=== PATIENT | male | born 1955 | race Caucasian/White ===

== ENCOUNTER → 2017-03-02 | Outpatient (CLI) | payer OTHER | LOC: FIMAGING 11:08 | PROVIDERS: ATTEND Family Medicine | DX: M67.911 Unspecified disorder of synovium and tendon, right shoulder (principal) ==

== ENCOUNTER → 2017-05-02 | Outpatient (CLI) | payer OTHER | LOC: FIMAGING 06:45 | PROVIDERS: ATTEND Orthopaedic Surgery | DX: S46.111A Strain of muscle, fascia and tendon of long head of biceps, right arm, initial encounter (principal); S43.431A Superior glenoid labrum lesion of right shoulder, initial encounter; M75.81 Other shoulder lesions, right shoulder ==

== ENCOUNTER 2017-10-02 21:54 | Emergency (ER) | payer OTHER ==
--- NOTE | 2017-10-02 21:57 | EDPHY ---
H & P Time Seen by Provider: 10/02/17 21:56 HPI/ROS: HPI CHIEF COMPLAINT: Right great toe pain HISTORY OF PRESENT ILLNESS: Very pleasant 62-year-old male, history of gout, additionally history of gout in his great toe. He presents emergency room with right great toe pain that started earlier this evening. He did have 2 beers earlier this evening. He states this feels like his previous gout. Patient denies any trauma to his foot. Denies fever. Pain is located over the right 1st MTP joint. Great toe. He is due to go to [place] on vacation tomorrow. He is requesting medications. I did offer blood work check CBC, uric acid an x-ray of his foot over he has declined all this with like indomethacin, [place] and walking boot. Past Medical History: Suite syndrome Past Surgical History: No recent surgery Social History: Occasional alcohol use, denies illicit drugs or tobacco. Family History: Noncontributory ROS REVIEW OF SYSTEMS: A comprehensive 10 point review of systems is otherwise negative aside from elements mentioned in the history of present illness. Exam Constitutional appears well nontoxic no acute distress, triage nursing summary reviewed, vital signs reviewed, awake/alert. Eyes normal conjunctivae and sclera, EOMI, PERRLA. HENT normal inspection, atraumatic, moist mucus membranes, no epistaxis, neck supple/ no meningismus, no raccoon eyes. Respiratory clear to auscultation bilaterally, normal breath sounds, no respiratory distress, no wheezing. Cardiovascular rate normal, regular rhythm, no murmur, no edema, distal pulses normal. Gastrointestinal soft, non-tender, no rebound, no guarding, normal bowel sounds, no distension, no pulsatile mass. Genitourinary no CVA tenderness. Musculoskeletal right ft: Neurovascular intact good distal pulse, good cap refill. Swelling and redness noted of the 1st MTP joint. Full range of motion. Warm extremity. No streaking. Swelling and redness located only to the right 1st MTP. no midline vertebral tenderness, full range of motion, no calf swelling, no tenderness of extremities, no meningismus, good pulses, neurovascularly intact. Skin pink, warm, & dry, no rash, skin atraumatic. Neurologic awake, alert and oriented x 3, AAOx3, moves all 4 extremities equally, motor intact, sensory intact, CN II-XII intact, normal cerebellar, normal vision, normal speech. Psychiatric normal mood/affect. Heme/Lymph/Immune no lymphadenopathy. Differential Diagnosis: Includes but is not limited to in a particular order gout, pseudogout, septic joint, infection, cellulitis, trauma Medical Decision Making: Patient here in emergency room declined blood work or x-ray. Will empirically treat for gout. Provide a prescription for indomethacin and [place]. Walking boot. I recommend he refrain from eating a diet high in periods. Recommend staying away from meets, as well as alcohol. He is due to fly tomorrow morning to [place] for vacation. Highly recommend he refrain from drinking alcohol. Additionally I went over return precautions with me understands return emergency room if develops worsening pain, swelling, redness or redness tracking up his foot or leg. Additionally recommend if his symptoms get worsen easy cristal Liu seeks medical attention. He understands return emergency room if worsening symptoms questions or concerns. Re-evaluation: Patient does understand that without blood work and x-ray this is most likely gout however there could be another potential diagnosis. He understands if this gets worse he should seek further medical attention. Limited prescription for [place], indomethacin, walking boot. Source: Patient - Medical/Surgical History Hx Asthma: No Hx Chronic Respiratory Disease: No Hx Diabetes: No Hx Cardiac Disease: No Hx Renal Disease: No Hx Cirrhosis: No Hx Alcoholism: No Hx HIV/AIDS: No Hx Splenectomy or Spleen Trauma: No Other PMH: HEALTHY - Social History Smoking Status: Current every day smoker Constitutional: Initial Vital Signs Temperature (C) 36.6 C 10/02/17 22:05 Heart Rate 85 10/02/17 22:05 Respiratory Rate 18 10/02/17 22:05 Blood Pressure 155/80 H 10/02/17 22:05 O2 Sat (%) 96 10/02/17 22:05 O2 Delivery Mode Room Air Allergies/Adverse Reactions: azithromycin [Azithromycin] Allergy (Intermediate, Verified 08/09/10 13:55) JOINT PAIN erythromycin base [Erythromycin Base] Allergy (Mild, Verified 08/19/09 07:40) Itching Penicillins Allergy (Mild, Verified 08/19/09 07:40) rash, itching Home Medications: Medication Instructions Recorded Hydrocodone/APAP 5/325 [[place] 1 - 2 tab PO Q4H PRN #10 tab 10/02/17 5/325] Indomethacin [Indocin 25 mg (*)] 25 mg PO TID #21 cap 10/02/17 Departure - Departure Disposition: Home, Routine, Self-Care Clinical Impression: Gout Qualifiers: Gout site: foot Gout etiology: unspecified cause Chronicity: acute Laterality: right Qualified Code(s): M10.9 - Gout, unspecified Condition: Good Instructions: Gout (ED), Low Purine Diet (ED) Additional Instructions: 1. [place] if you are having serve pain, this can cause you to bee sleepy. 2. Stay away from Alcohol, and high meat content. 3. Follow up with your doctor. 4. walking boot for comfort. 5. Ice 6. REst, Elevation 7. Seek medical attention if her pain gets worse or redness or swelling gets worse. Prescriptions: Hydrocodone/APAP 5/325 [[place] 5/325] 1 - 2 tab PO Q4H PRN #10 tab PRN Reason: Pain, Moderate Indomethacin [Indocin 25 mg (*)] 25 mg PO TID #21 cap
[2017-10-02] MEDS ORDERED: HYDROCOD/APAP 5/325 PREPACK#6 BTL TAKEHOME ONE (22:06)
[2017-10-02] MEDS ORDERED: HYDROCODONE/APAP 5/325 TAB PO ONE (22:06)
[2017-10-02 22:07] VITALS: BP 155/80
== END 2017-10-02 22:21 | disposition home or self-care (01) ==
LOC: CED 21:54
DX: M10.9 Gout, unspecified (principal); F17.200 Nicotine dependence, unspecified, uncomplicated
CPT/HCPCS: L4386

== ENCOUNTER 2018-02-26 11:02 | Emergency (ER) | payer OTHER ==
[2018-02-26] MEDS ORDERED: ACETAMINOPHEN 500 MG TAB PO ONE (11:35)
--- NOTE | 2018-02-26 11:38 | EDPHY ---
H & P Stated Complaint: FOSS Time Seen by Provider: 02/26/18 11:16 HPI/ROS: CHIEF COMPLAINT: Headache History by patient HISTORY OF PRESENT ILLNESS: 62-year-old man presents complaining of 5 days of severe right frontal headache which occurs predominantly at night. The 1st time he had it it woke him from sleep and got gradually worse. It was not clearly thunderclap onset. He got up and took some Aleve with some relief. This has reoccurred over the next several nights but he denied it seems to be worse and last night did not respond to ibuprofen or warm compresses and has persisted into the day today. He has had a history of gum infections and thought maybe it was related to tooth infection so he saw his dentist who did an x-ray and started him on antibiotics, clindamycin, yesterday, but this has not helped it. He denies any associated nausea but he did take Percocet for the headache 2 nights ago which made him nauseated. He has had no vomiting. He denies any change in vision. Denies any focal numbness or weakness. He denies any neck stiffness or pain. He has no prior history of migraines. He has no prior history of headaches. He does occasionally snore, but this is not severe and his states that he has no periods of apnea. He denies any fever chills or sinus congestion or runny nose. He has never had anything like this before. 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 REVIEW OF SYSTEMS: As in HPI, and all other systems reviewed and are negative Source: Patient - Personal History Current Tetanus/Diphtheria Vaccine: Yes Current Tetanus Diphtheria and Acellular Pertussis (TDAP): Yes - Medical/Surgical History Hx Asthma: No Hx Chronic Respiratory Disease: No Hx Diabetes: No Hx Cardiac Disease: No Hx Renal Disease: No Hx Cirrhosis: No Hx Alcoholism: No Hx HIV/AIDS: No Hx Splenectomy or Spleen Trauma: No Other PMH: HEALTHY - Social History Smoking Status: Current every day smoker - Physical Exam Exam: General Appearance: Alert, nontoxic-appearing. Head: normocephalic, atraumatic, no sinus tenderness Eyes: Pupils equal and round, reactive to light, no pallor or injection. Extraocular movements intact, unable to visualize fundi Mouth: Mucous membranes moist. Neck: No cervical adenopathy, full range of motion without meningismus, no bony tenderness Respiratory: Normal, effort, lungs are clear to auscultation. No wheezes, rales or rhonchi. Cardiovascular: Regular rate and rhythm. S1, S2, no murmurs, gallops or rubs appreciated Gastrointestinal: Abdomen is soft and nontender, no masses, bowel sounds normal. Back: No CVA tenderness, no bony tenderness Neurological: Awake, alert and oriented x 3, cranial nerves 2 through 12 intact , no pronator drift, normal gait, heel to houser intact, [id number] intact, DTRs 2+ and equal bilaterally, sensation equal bilaterally Skin: Warm and dry, no rashes. Musculoskeletal: No deformities or tenderness. Extremities: full range of motion, no edema, DP2+ bilat Psychiatric: Patient has normal affect, there is no agitation. Constitutional: Initial Vital Signs Temperature (C) 36.5 C 02/26/18 11:27 Heart Rate 73 02/26/18 11:27 Respiratory Rate 18 02/26/18 11:27 Blood Pressure 142/93 H 02/26/18 11:27 O2 Sat (%) 91 L 02/26/18 11:27 O2 Delivery Mode Room Air Allergies/Adverse Reactions: azithromycin [Azithromycin] Allergy (Intermediate, Verified 02/26/18 11:30) JOINT PAIN erythromycin base [Erythromycin Base] Allergy (Mild, Verified 02/26/18 11:30) Itching Penicillins Allergy (Mild, Verified 02/26/18 11:30) rash, itching Home Medications: Medication Instructions Recorded Allopurinol 02/26/18 Hydrocodone/APAP 5/325 [[place] 1 - 2 tab PO Q4H PRN #7 tab 02/26/18 5/325 (*)] Medical Decision Making - Diagnostics Imaging Results: Imaging Impressions Head CT 02/26/18 11:44 Impression: 1. No significant intracranial abnormality without and with contrast. 2. Dental disease and nonspecific ethmoid and frontal sinus disease. Findings discussed with Mago Hastings MD at 13:02 hour, 02/26/2018. ED Course/Re-evaluation: 62-year-old man with history of sweets disease presents with 5 days of nocturnal headache and normal neurologic exam. There is no associated nausea or vomiting. Patient pops might be related to his chronic gum disease and size since yesterday who started him on clindamycin. A CT scan with and without contrast was done today which showed no evidence of brain lesion. Did show gingivitis and sinus disease. Patient is currently on clindamycin. I am recommending he continue these antibiotics follow up with primary care physician if his symptoms persist or worsen. He was given Tylenol emerged department with some improvement in his pain. He is given a small number of [place] for severe pain at night to help sleep. - Data Points Laboratory Results: 02/26/18 12:04 POC Creatinine 0.8 mg/dL mg/dL (0.7-1.3) Medications Given: Discontinued Medications Acetaminophen (Tylenol) 1,000 mg PO EDNOW ONE Stop: 02/26/18 11:36 Last Admin: 02/26/18 11:42 Dose: 1,000 mg Point of Care Test Results: Chemistry 02/26/18 12:04 POC Creatinine 0.8 mg/dL mg/dL (0.7-1.3) Departure - Departure Disposition: Home, Routine, Self-Care Clinical Impression: Gingivitis Headache Qualifiers: Headache type: unspecified Headache chronicity pattern: unspecified pattern Intractability: not intractable Qualified Code(s): R51 - Headache Condition: Good Instructions: Acute Headache (ED) Additional Instructions: You were seen by Dr. Mago Hastings today. Your CT scan did not show brain lesions. You have a gum infection and potentially a sinus infection. Your currently on appropriate antibiotics for this from her dentist. Continue to take Tylenol a 1000 mg up to 4 times daily. You may take [place] 1-2 tablets at night for severe pain. Please follow up with primary care physician if your symptoms persist or worsen. Return for any worsening or new concerns. Referrals: Minesh Vang MD [Primary Care Provider] - As per Instructions Prescriptions: Hydrocodone/APAP 5/325 [[place] 5/325 (*)] 1 - 2 tab PO Q4H PRN #7 tab PRN Reason: Pain, Moderate
[2018-02-26] MEDS ORDERED: IOPAMIDOL (ISOVUE-300) 100 ML BTL ONE (11:53)
[2018-02-26 13:30] VITALS: BP 132/82
== END 2018-02-26 13:30 | disposition home or self-care (01) ==
LOC: CED 11:02
DX: R51 Headache (principal); K05.10 Chronic gingivitis, plaque induced; F17.200 Nicotine dependence, unspecified, uncomplicated
CPT/HCPCS: 70470-PO; 82565-PO; Q9967

== ENCOUNTER 2018-03-14 12:24 | Inpatient (IN) | payer OTHER ==
--- NOTE | 2018-03-14 15:20 | EDPHY ---
H & P Stated Complaint: FOSS @night x3wks Time Seen by Provider: 03/14/18 15:01 HPI/ROS: CHIEF COMPLAINT: Nighttime headache HISTORY OF PRESENT ILLNESS: A 62-year-old male presents with a 3 week history of nighttime headache. Over the past 3 weeks, he has had right frontal headaches at night only. No associated symptoms and no alleviating or aggravating factors. Tends to feel fine during the day. No recent URI or fever. No prior history of similar headaches. He was seen at [facility] and had a CT scan that revealed frontal sinusitis. He has taken 3 courses of antibiotics and steroids, without relief. No relief with Percocet. He has seen his dentist for possible dental infection. X-rays revealed no evidence of dental infection. REVIEW OF SYSTEMS: complete 10 point ROS reviewed and is negative except for the noted elements in the HPI - Personal History Current Tetanus/Diphtheria Vaccine: Yes - Medical/Surgical History Hx Asthma: No Hx Chronic Respiratory Disease: No Hx Diabetes: No Hx Cardiac Disease: No Hx Renal Disease: No Hx Cirrhosis: No Hx Alcoholism: No Hx HIV/AIDS: No Hx Splenectomy or Spleen Trauma: No Other PMH: HEALTHY - Social History Smoking Status: Current every day smoker Drug Use: None Additional Social History: - Physical Exam Exam: General Appearance: Alert, pleasant Eyes: Right pupil 2 mm, left pupil 3 mm, reactive, EOMI, no nystagmus, no conjunctival pallor or injection ENT, Mouth: Mucous membranes moist, no dental swelling or tenderness Neck: Normal inspection, no tenderness or adenopathy Respiratory: Lungs are clear to auscultation, no wheezing Cardiovascular: Regular rate and rhythm Gastrointestinal: Abdomen is soft and nontender Neurological: Alert, oriented x3, cranial nerves II through XII intact, except pupils as above, motor 5/5, sensory intact to light touch, normal gait. Skin: Warm and dry, no rash Extremities: Nontender, no pedal edema Psychiatric: Mood and affect normal Constitutional: Initial Vital Signs Temperature (C) 36.4 C 03/14/18 12:46 Heart Rate 64 03/14/18 12:46 Respiratory Rate 18 03/14/18 12:46 Blood Pressure 144/99 H 03/14/18 12:46 O2 Sat (%) 95 03/14/18 12:46 O2 Delivery Mode Room Air Allergies/Adverse Reactions: azithromycin [Azithromycin] Allergy (Intermediate, Verified 03/14/18 12:49) JOINT PAIN erythromycin base [Erythromycin Base] Allergy (Mild, Verified 03/14/18 12:49) Itching Penicillins Allergy (Mild, Verified 03/14/18 12:49) rash, itching Home Medications: Medication Instructions Recorded Allopurinol [Allopurinol 300 MG 300 mg PO DAILY 02/26/18 (RX)] Clindamycin 150 mg PO Q6HRS 03/14/18 Ibuprofen [Motrin (*)] 400 mg PO DAILY PRN 03/14/18 methylPREDNISolone [Medrol Dose 1 each PO AD 03/14/18 Garth] oxyCODONE HCL/ACETAMINOPHEN 2 each PO Q4HRS PRN 03/14/18 [Percocet 10-325 mg Tablet] Medical Decision Making - Diagnostics EKG Interpretation: EKG interpreted by me reveals first-degree AV block, rate 66, no ST or T segment changes. Interpretation: Abnormal EKG Imaging Results: MRI of the brain read by the radiologist reveals 2 acute lacunar infarcts in the right frontal and right parietal area. Imaging: Discussed imaging studies w/ general assistant Radiologist, I viewed and interpreted images myself ED Course/Re-evaluation: MRI results discussed with the patient and his . Aspirin 325 mg orally given. Will admit for further evaluation of lacunar infarcts. Neurologic exam remains normal, except for pupillary inequality. CTA of the head/neck obtained and reveals mild atherosclerosis of the carotid bulbs. The patient remained stable throughout his emergency department stay. patient monitor revealed sinus rhythm throughout. Neurologic exam remained unchanged. The hospitalist service was consulted for admission. Dr. Tello was consulted. Differential Diagnosis: Headache including but not limited to carotid dissection, subarachnoid hemorrhage, migraine headache, tension headache and infectious causes such as meningitis, pharyngitis and sinusitis. - Data Points Laboratory Results: Laboratory Results 03/15/18 04:15 03/14/18 16:20 Medications Given: Acetaminophen (Tylenol) 650 mg PO Q4HRS PRN PRN Reason: Pain, Mild/Fever, Can Take PO Stop: 09/10/18 19:10 Last Admin: 03/16/18 08:34 Dose: 650 mg Allopurinol (Allopurinol) 300 mg PO DAILY RAJWINDER Stop: 09/11/18 08:59 Last Admin: 03/16/18 08:07 Dose: 300 mg Diphenhydramine HCl (Benadryl) 25 - 50 mg PO Q6HRS PRN PRN Reason: Headache Stop: 09/10/18 19:10 Last Admin: 03/15/18 23:06 Dose: 25 mg Enoxaparin Sodium (Lovenox) 40 mg SC DAILY [facility] Stop: 09/12/18 08:59 Last Admin: 03/16/18 08:07 Dose: 40 mg Vancomycin HCl 1.25 gm/ Sodium (Chloride) 250 mls @ 166.667 mls/hr IV Q12H RAJWINDER Stop: 04/15/18 08:59 Last Admin: 03/16/18 08:08 Dose: 250 mls Discontinued Medications Aspirin (Aspirin) 325 mg PO EDNOW ONE Stop: 03/14/18 16:39 Last Admin: 03/14/18 16:46 Dose: 325 mg Aspirin Buffered (Aspirin Ec) 81 mg PO DAILY [facility] Stop: 09/11/18 08:59 Last Admin: 03/16/18 08:07 Dose: 81 mg Diphenhydramine HCl (Benadryl) 50 mg PO ONCE ONE Stop: 03/14/18 22:30 Last Admin: 03/14/18 22:51 Dose: 50 mg Vancomycin HCl 1.5 gm/ (Dextrose) 250 mls @ 166.667 mls/hr IV ONCE ONE Stop: 03/15/18 22:29 Last Admin: 03/15/18 21:20 Dose: 250 mls Influenza Virus Vaccine Quadrival (Flulaval Quad [id number] (6mo+)) 0.5 ml IM .ONCE ONE Stop: 03/15/18 10:18 Last Admin: 03/15/18 10:33 Dose: 0.5 ml Pneumococcal Polyvalent Vaccine (Pneumovax 23) 0.5 ml IM .ONCE ONE Stop: 03/15/18 10:18 Last Admin: 03/15/18 10:35 Dose: 0.5 ml Departure - Departure Disposition: [facility] Inpatient Acute Clinical Impression: CVA (cerebral vascular accident) Qualifiers: CVA mechanism: unspecified Qualified Code(s): I63.9 - Cerebral infarction, unspecified Condition: Fair
[2018-03-14] MEDS ORDERED: IOPAMIDOL (ISOVUE 370) 100 ML BTL IV ONE (16:33)
[2018-03-14] MEDS ORDERED: ASPIRIN 325 MG TAB PO ONE (16:38)
[2018-03-14 17:05] LABS: PLATELET COUNT 322 10^3/uL (150-400)
[2018-03-14] MEDS ORDERED: ONDANSETRON DISINTEGRATING 4 MG TAB PO PRN (19:11)
[2018-03-14] MEDS ORDERED: ONDANSETRON 4 MG/2 ML VIAL IVP PRN (19:11)
[2018-03-14] MEDS ORDERED: PROMETHAZINE HCL 25 MG TAB PO PRN (19:11)
[2018-03-14] MEDS ORDERED: PROMETHAZINE HCL 25 MG/ML INJ IVP PRN (19:11)
[2018-03-14] MEDS ORDERED: HYDROmorphONE/DILAUDID 2 MG TAB PO PRN (19:11)
[2018-03-14] MEDS ORDERED: diphenhydrAMINE 50 MG CAP PO ONE (22:29)
--- NOTE | 2018-03-14 22:34 | PDGENHP ---
History and Physical - Chief Complaint Acute headache - History of Present Illness Primary care provider: Dr. Minesh Vang HPI: 62-year-old male presents with acute headache located in the frontal area characterized as severe, awakening him from sleep for the past 3 weeks. He reports that the onset is usually after he has gone to sleep, occurring around 11:30 p.m., and duration approximately 3 hr. Last night the headache was refractory to 3 doses of Percocet. Falling asleep does alleviate the pain, and he wakens the next morning without headache. The headache is associated with dizziness but he describes no blurred vision, no paresis or paresthesias. He has had evaluation for the headache at urgent care on 02/[address] demonstrating possible sinusitis, as well as with his primary dentist. Given his extensive history of poor dentition, his dentist did prescribe him clindamycin as well as ibuprofen and then a subsequent steroid burst. He did see his oral surgeon yesterday who performed a Panorex, which did not demonstrate any dental infection at that time. His last dosage of NSAIDs was approximately 2 weeks ago, and he is currently utilizing a Neti pot, Nasacort, tapering steroids, Percocet p.r.n.. He has no other previous history of headaches or migrainous disorder. History Information - Allergies/Home Medication List Allergies/Adverse Reactions: azithromycin [Azithromycin] Allergy (Intermediate, Verified 03/14/18 12:49) JOINT PAIN erythromycin base [Erythromycin Base] Allergy (Mild, Verified 03/14/18 12:49) Itching Penicillins Allergy (Mild, Verified 03/14/18 12:49) rash, itching Home Medications: Allopurinol [Allopurinol 300 MG (RX)] 300 mg PO DAILY 02/26/18 [Last Taken 03/14] Clindamycin 150 mg PO Q6HRS 03/14/18 [Last Taken 03/14/18 12:00] Ibuprofen [Motrin (*)] 400 mg PO DAILY PRN 03/14/18 [Last Taken Unknown] methylPREDNISolone [Medrol Dose Garth] 1 each PO AD 03/14/18 [Last Taken 03/14/18 09:00] oxyCODONE HCL/ACETAMINOPHEN [Percocet 10-325 mg Tablet] 2 each PO Q4HRS PRN [Last Taken 03/13/18 23:30] I have personally reviewed and updated: family history, medical history, social history, surgical history - Past Medical History Additional medical history: 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 Untreated hyperlipidemia. Previous history of dental caries - Surgical History Additional surgical history: Mandibular tooth removal - Family History Additional family history: Adopted, does not know his biologic family history - Social History Smoking Status: Current every day smoker Alcohol Use: Other (Patient regularly drinks 5 alcoholic beverages on a daily basis, has never experienced acute alcohol withdrawal) Drug Use: Marijuana (Occasionally) Additional social history: Independent in his ADLs comma actively engages in physical exercise without any recent chest pain or inducible shortness of breath , no recent reduction exercise tolerance Review of Systems Review of Systems: ROS: 10pt was reviewed & negative except for what was stated in HPI & below Neurological: Reports: other (Headache and dizziness) Physical Exam Physical Exam: Temp Pulse Resp BP Pulse Ox 36.4 C 64 16 135/86 H 93 03/14/18 22:20 03/14/18 22:20 03/14/18 22:20 03/14/18 22:20 03/14/18 22:20 Constitutional: no apparent distress, appears nourished, not in pain, No uncomfortable Eyes: EOMI, other (Anisocoria, left pupil greater than right) Ears, Nose, Mouth, Throat: moist mucous membranes, hearing normal, poor dentition Cardiovascular: regular rate and rhythym, no murmur, rub, or gallop, other (No abdominal bruits), No carotid bruit, No edema Respiratory: no respiratory distress, no rales or rhonchi, clear to auscultation Gastrointestinal: normoactive bowel sounds, soft, non-tender abdomen, no palpable masses Skin: warm, No rash Neurologic: AAOx3, sensation intact bilaterally, CN II-XII Intact (With the exception of anisocoria, pupils are both reactive to light), No weakness Psychiatric: interacting appropriately, not anxious, not encephalopathic, thought process linear Lab Data & Imaging Review 03/14/18 17:00 03/14/18 16:20 WBC 14.02 10^3/uL (3.80-9.50) H 03/14/18 16:20 RBC 5.06 10^6/uL (4.40-6.38) 03/14/18 16:20 Hgb 16.5 g/dL (13.7-17.5) 03/14/18 16:20 Hct 49.9 % (40.0-51.0) 03/14/18 17:00 MCV 95.5 fL (81.5-99.8) 03/14/18 16:20 MCH 32.6 pg (27.9-34.1) 03/14/18 16:20 MCHC 34.2 g/dL (32.4-36.7) 03/14/18 16:20 RDW 13.7 % (11.5-15.2) 03/14/18 16:20 Plt Count 322 10^3/uL (150-400) 03/14/18 16:20 MPV 8.8 fL (8.7-11.7) 03/14/18 16:20 Neut % (Auto) 57.2 % (39.3-74.2) 03/14/18 16:20 Lymph % (Auto) 34.4 % (15.0-45.0) 03/14/18 16:20 Calhoun % (Auto) 6.1 % (4.5-13.0) 03/14/18 16:20 Eos % (Auto) 1.5 % (0.6-7.6) 03/14/18 16:20 Baso % (Auto) 0.4 % (0.3-1.7) 03/14/18 16:20 Nucleat RBC Rel Count 0.0 % (0.0-0.2) 03/14/18 16:20 Absolute Neuts (auto) 8.01 10^3/uL (1.70-6.50) H 03/14/18 16:20 Absolute Lymphs (auto) 4.82 10^3/uL (1.00-3.00) H 03/14/18 16:20 Absolute Monos (auto) 0.86 10^3/uL (0.30-0.80) H 03/14/18 16:20 Absolute Eos (auto) 0.21 10^3/uL (0.03-0.40) 03/14/18 16:20 Absolute Basos (auto) 0.06 10^3/uL (0.02-0.10) 03/14/18 16:20 Absolute Nucleated RBC 0.00 10^3/uL (0-0.01) 03/14/18 16:20 Immature Gran % 0.4 % (0.0-1.1) 03/14/18 16:20 Immature Gran # 0.06 10^3/uL (0.00-0.10) 03/14/18 16:20 ESR 6 MM/HR (0-20) 03/14/18 17:00 Sodium 138 mEq/L (135-145) 03/14/18 16:20 Potassium 4.2 mEq/L (3.3-5.0) 03/14/18 16:20 Chloride 102 mEq/L (97-110) 03/14/18 16:20 Carbon Dioxide 25 mEq/l (22-31) 03/14/18 16:20 Anion Gap 11 mEq/L (6-14) 03/14/18 16:20 BUN 13 mg/dL (7-23) 03/14/18 16:20 Creatinine 0.6 mg/dL (0.7-1.3) L 03/14/18 16:20 Estimated GFR > 60 03/14/18 16:20 Glucose 100 mg/dL (70-100) 03/14/18 16:20 Calcium 10.0 mg/dL (8.5-10.4) 03/14/18 16:20 C-Reactive Protein < 5.0 mg/L (<10.0) 03/14/18 16:50 Visualized and Interpreted Chest x-ray results: Yes Chest X-Ray results: no infiltrate Visualized and Interpreted EKG results: Yes EKG Interpretation: Positive for: normal sinsus rhythm (1st degree AV block) Assessment & Plan Assessment: 62-year-old male presenting with acute frontal lacunar CVA Plan: 1. CVA. Acute, new problem this provider, further workup indicated. Right frontoparietal lacunar infarcts most likely secondary to small-vessel disease with history of untreated hyperlipidemia based on review of outside records from 10/12/2014 an LDL of 184 -that being said, ruled out cerebrovascular cause with CT angiogram demonstrating mild bilateral stenosis at the bulbs but no flow-limiting stenosis , patent vertebral arteries -evaluate for potential cardioembolic source with echocardiogram, telemetry overnight -check LDL, A1c -recommend aspirin 81 and statin for secondary prevention -will get Neurology consultation in a.m. -will avoid NSAIDs -permissive hypertension 2. Headache. Acute, unclear etiology, potential causes include CVA mediated verses migrainous with resultant CVA verses actual sinusitis with subsequent NSAID use precipitating CVA -unlikely that we will objectively have an explanation, but appreciate any suggestions Neurology may have regarding future headache management, as it be prudent for us to avoid triptans as abortive therapy and we need to avoid NSAIDs as well -will give him 50 mg of Benadryl preemptively tonight, gauge effect, breakthrough Dilaudid p.r.n. 3. History of Sweet's syndrome. ESR and CRP both within normal limits, unlikely contributors 4. Possible sinusitis. Reviewed outside records including urgent care report by Dr. Mago white from 02/26/2018, indicates the patient was on clindamycin and NSAIDs, I do not believe there is any present evidence of sinusitis and I have discontinue clindamycin -leukocytosis most likely secondary to steroid effect -will repeat white blood cell count in a.m., and if rising despite the patient only receiving 20 mg of prednisone this morning, then this may be suggestive of of all vanc infection and he may require repeat sinus CT as well as consideration antibiotic adjustment Diet. Regular Prophylaxis. Moderate risk patient, SCDs, hold pharm given CVA Code. Full Disposition. Anticipated discharge 03/15, pending further workup as outlined above. I have discussed patient's presentation with Dr. Angeline Nunn, we both agree the patient requires urgent evaluation as outlined above.
--- NOTE | 2018-03-14 23:10 | CPEKG ---
Test Reason : OPEN Blood Pressure : / mmHG Vent. Rate : 066 BPM Atrial Rate : 067 BPM P-R Int : 213 ms QRS Dur : 088 ms QT Int : 390 ms P-R-T Axes : 047 067 042 degrees QTc Int : 409 ms Sinus rhythm Borderline prolonged WA interval Confirmed by Angeline Nunn ([id number]) on 03/14/2018 11:10:38 PM Referred By: Confirmed By:Angeline Nunn
[2018-03-15 04:48] LABS: PLATELET COUNT 305 10^3/uL (150-400)
[2018-03-15] MEDS: ASPIRIN EC 81 MG TAB PO SCH (08:37)
[2018-03-15] MEDS: ALLOPURINOL 300 MG TAB PO SCH (08:37)
[2018-03-15] MEDS ORDERED: PNEUMOCOCCAL 0.5ML VACCINE VIAL IM ONE (10:17)
--- NOTE | 2018-03-15 12:01 | ECHO ---
[email or web address] [address] Main: [phone] Fax: Transthoracic Echocardiogram Name: ROB QUEVEDO MR#: [id number] Study Date: 03/15/2018 Study Time: 08:37 AM Date of : 1955 Age: 62 year(s) Height: 177.8 cm (70 in.) Weight: 81.65 kg (180 lb.) BSA: 2 m2 Gender: Male Examination: Echo Indication: Ischemic stroke Image Quality: Excellent Contrast: Requested by: Nahid Roberts BP: 126 mmHg/82 mmHg Heart Rate: Rhythm: Indication: Ischemic stroke Procedure Staff Injection Press Operator: Addis Zimmerman [facility] Reading Physician: Vika Burciaga MD Requesting Provider: Conclusions: Normal size left ventricle. No LV hypertrophy. Normal global systolic LV function. The ejection fraction is estimated to be 65-70 %. No regional wall motion abnormality. Normal size right ventricle. Normal RV function. An agitated saline study was performed and was negative for intracardiac shunting. No significant valvular disease. No obvious cardiac source of embolism. ANNE is more sensitive to detect cardiac source of embolism. Measurements: Chambers Valvular Assessment AV/MV Valvular Assessment TV/PV Normal Normal Normal Name Value Range Name Value Range Name Value Range Ao Mitra (MM): 4.0 cm (2.2 cm-3.7 AV Vmax: 1.15 m/s (1 m/s-1.7 cm) m/s) IVSd (2D): 0.7 cm (0.6 cm-1.1 AV meanP mmHg ( - ) cm) MV E Vmax: 0.66 m/s ( - ) LVDd (2D): 4.6 cm (4.2 cm-5.9 MV A Vmax: 0.66 m/s ( - ) cm) MV E/A: 1.00 ( - ) LVDs (2D): 2.7 cm (2.1 cm-4 cm) LVPWd (2D): 0.9 cm (0.6 cm-1 cm) LVEF (MOD4): 70 % (>=55 %) EF Range: 65-70 % Continued Measurements: Chambers Valvular Assessment AV/MV Patient: ROB QUEVEDO Study Date: 03/15/2018 Page 1 of 2 08:37 AM Name Value Name Value LADs: 3.4 cm MV E' Septal: 0.07 m/s LADs Lon.6 cm MV E/E' Septal: 9.10 LA Area: 18.8 cm2 MV E/E' Lateral: 6.00 LA Volume: 45 ml LA Volume Index: 22.5 ml/m2 Additional Vessels Name Value Ao Ascendin.6 cm Findings: Left Ventricle: Normal size left ventricle. No LV hypertrophy. Normal global systolic LV function. The ejection fraction is estimated to be 65-70 %. No regional wall motion abnormality. Normal diastolic LV function. Right Ventricle: Normal size right ventricle. Normal RV function. Left Atrium: The left atrium is normal in size. An agitated saline study was performed and was negative for intracardiac shunting. Right Atrium: The right atrium is normal in size. Mitral Valve: The mitral valve is normal in appearance and function. Trivial mitral valve regurgitation. Aortic Valve: The aortic valve is normal in appearance and function. Trivial aortic valve regurgitation. Tricuspid Valve: The tricuspid valve is normal in appearance and function. Pulmonic Valve: The pulmonic valve is normal in appearance and function. Aorta: The aorta is normal. Pericardium: No pericardial effusion. (No Signature Object) Patient: ROB QUEVEDO Study Date: 03/15/2018 Page 2 of 2 08:37 AM [id number]
--- NOTE | 2018-03-15 14:09 | NEUROPROG ---
Assessment: HOSPITAL NEUROLOGY CONSULT REQUESTING: Nahid Roberts MD REASON: stroke HPI: 62 year old man with a history of dental caries, HLD (untreated) presented to the ED yesterday with 3 weeks of FOSS. He states about 3 weeks ago he began having a right frontal headache at night starting around 2300. It intensified over days where it would keep him awake, though sleep made it better and he would awaken in the morning without any FOSS. He visited his dentist who took a CT and told him he had a gum infection, so started him on clindamycin and steroid. He continued to have FOSS that intensified. HAs were refractory to OTC NSAID, hydrocodone and oxycodone. He visited an oral surgeon who stated he had no evidence of gum infection, but he had completed his antibiotics by then. FOSS persisted which inspired the ED visit. He had no weakness, sensory disturbance , vision changes, gait change, vertigo, hearing change, speech/language changes. He has no CP, palpitations, SOB. His notes he's been very sweaty in the last few days. Patient has felt a bit warm, but no fevers. On admission an MRI brain wo was done showing a punctate right parietal white matter and cortical ribbon of acute infarct. CTA head/neck showed only some mild carotid bulb plaque bilaterally without any hemodynamic compromise. He has no history of stroke/TIA. ROS: As per the HPI, otherwise a complete 12 point ROS was performed and is negative ALLERGIES AND MEDS: As recorded in the EMR - reviewed and reconciled PFSH: As per the intake H&P by Dr. Roberts from yesterday EXAM: VS reviewed in EMR GEN: WDWN laying in NAD, a bit diaphoretic HEENT: NCAT, sclera anicteric, conjunctiva not injected, MMM, oropharynx clear, no scalp tenderness NECK: supple, nontender, no meningismus CV: RRR s1 s2 wo m/r/c/g. Carotid pulses 2+ wo bruit NEURO: MS: awake, alert, oriented to all spheres. Speech nondysarthric. No language disturbance. Follows commands. Attends to both sides. Recent/remote memory grossly intact. Mood euthymic. Good fund of knowledge. CN: pupils 3mm round and reactive. Fundi with sharp discs. VFF. Primary gaze centered. Full ocular motility. Facial sensation preserved. Face symmetric. Hearing grossly intact to finger rub. Palatoglossal movements intact. Shoulder shrug and head turn strong. MOTOR: normal bulk/tone. No adventitial movements. Full power throughout. SENSORY: intact to all modalities throughout. No extinction. COORD: no ataxia FN/HS. Lashanda preserved. REFLEX: plantars down. No clonus. DTRS 2/4. GAIT: deferred to PT safety eval DATA REVIEW: Labs reviewed in EMR LDL 169 ESR 6 CRP <5 TTE - no mass/shunt, normal valves PERSONALLY INTERPRETED RESULTS AND DATA: MRI brain wo and CTA head/neck per HPI IMPRESSION AND RECOMMENDATIONS: // ACUTE ISCHEMIC STROKE // FOSS Patient with right parietal cortical and white matter ischemia which invokes a mechanism of proximal embolization. CTA head/neck without any significant nidus for proximal embolization. This leaves a cardioembolic source. He did report a gum infection at onset per his dentist, for which he was on ABX. His TTE shows no overt valvular change. Leukocytosis likely from steroid tapering, but given the reported possible dental infection, diaphoresis and leukocytosis, infectious etiology should be ruled out. - blood cultures - cont ASA 81mg daily for now - statin for goal LDL < 70 - goal normotension - goal normoglycemia with A1c < 6.5 - PT/OT/WOOL CARDER eval - stroke education - monitor on tele - if cultures negative, then will need outpatient 30-day Holter vs. ILR - will follow on BCx Objective: Vital Signs Temp Pulse Resp BP Pulse Ox 36.7 C 64 17 115/81 H 93 03/15/18 11:42 03/15/18 11:42 03/15/18 11:42 03/15/18 11:42 03/15/18 11:42 Laboratory Results 03/15/18 04:15 03/14/18 03/15/18 03/16/18 05:59 05:59 05:59 Intake Total 1400 Balance 1400 Allergies/Adverse Reactions: azithromycin [Azithromycin] Allergy (Intermediate, Verified 03/14/18 12:49) JOINT PAIN erythromycin base [Erythromycin Base] Allergy (Mild, Verified 03/14/18 12:49) Itching Penicillins Allergy (Mild, Verified 03/14/18 12:49) rash, itching
--- NOTE | 2018-03-15 15:38 | ASMTCMCOM ---
CM Note CM Note Notes: Pt has been admitted with CVA and headache. He has a hx of smoking and etoh x5 per day but reported no issue with withdrawal symptoms. Neuro consulting. PT/OT/SLT cleared. ANNE planned, not sure it will be done while pt is in hospital or after d/c. CM will follow for any d/c needs. Date Signed: 03/15/2018 03:37 PM Electronically Signed By:BARBARA Machado
--- NOTE | 2018-03-15 16:44 | HOSPPROG ---
Hospitalist Progress Note Assessment/Plan: DIAGNOSES: * suspicion for a bacterial endocarditis, subacute * embolic appearing lesions in right parietal brain * intermittent headaches likely due to above Given the patient's recent dental infection without complete resolution of symptoms, more recent episodes of diaphoresis with hot and cold symptoms, and possibly embolic appearing strokes, high suspicion for endocarditis or other embolic events exist. Agree with Dr. Tello that aggressive assessment for this is indicated. He has ordered 1 set of blood cultures. PLANS: * Continued observation here in the hospital * Will get total of 3 sets of blood cultures * Will begin empiric antibiotic in case there is endocarditis * Will order ANNE * Id consult * Will add DVT prophylaxis * SUBJECTIVE: Did have some headache again last night No chills or sweats here so far but has been having them at home No current dental pain OBJECTIVE Vitals reviewed: Stable without fever here so far [employer], my review: All sinus so far Exam: alert oriented No acute neurologic abnormalities focally skin warm dry color ok; no hemorrhages in nails no lesions on fingertips or intraoral resps not labored lungs clear BSs heart regular abd soft nondistended nontender, bowel sounds present limbs warm, no edema iv site ok I reviewed the brain MRI images which do show 2 lesions in the right parietal areas suspicious for possible embolic lesions Objective: Vital Signs Temp Pulse Resp BP Pulse Ox 36.6 C 63 18 123/79 H 94 03/15/18 15:50 03/15/18 15:50 03/15/18 15:50 03/15/18 15:50 03/15/18 15:50 Laboratory Results 03/15/18 04:15 03/14/18 03/15/18 03/16/18 06:59 06:59 06:59 Intake Total 1400 Balance 1400 - Time Spent With Patient Time Spent with Patient: greater than 35 minutes Time Spent with Patient: Greater than 35 minutes spent on this patients care, greater than 50% of time spent counseling, educating, and coordinating care regarding the above mentioned plan. ICD10 Worksheet Patient Problems: Problems Problem Status Onset CVA (cerebral vascular accident) Acute
[2018-03-15] MEDS ORDERED: VANCOMYCIN 1.5 GM in D5W 250 ML IV ONE (21:00)
[2018-03-15] MEDS: diphenhydrAMINE 25 MG CAP PO PRN (23:06)
[2018-03-16] MEDS: ALLOPURINOL 300 MG TAB PO SCH (08:07)
[2018-03-16] MEDS: ASPIRIN EC 81 MG TAB PO SCH (08:07)
[2018-03-16] MEDS: ENOXAPARIN 40 MG/0.4 ML SYR SC SCH (08:07)
[2018-03-16] MEDS: VANCOMYCIN 1.25 GM in NS 250 ML IV SCH ×2 (08:08→21:01)
[2018-03-16] MEDS: ACETAMINOPHEN 325 MG TAB PO PRN ×3 (08:34→22:42)
--- NOTE | 2018-03-16 10:39 | PDMN ---
Medical Necessity Medical necessity: MCG: M83 stroke: ischemic 2 days: pt with hx of FOSS x 3weeks , recent dental work and abx, concern for cardiac source- suspicion for bacterial endocarditis, subacute. status changed to INPT 03/15 for ongoing med nec tx IV abx and ANNE, ID consult, blood cultures,
--- NOTE | 2018-03-16 12:20 | HOSPPROG ---
Hospitalist Progress Note Assessment/Plan: The patient is a a 62-year-old male with PMH alcohol use, smoking, hypercholesterolemia who was admitted for intractable headache and found to have a right parietal infarct. ASSESSMENT/PLAN: Acute ischemic CVA w/ R parietal infarct -suspect cardioembolic source, possible IE w/ Hx dental caries. -ANNE in AM. -BCx pending. -ASA daily. -Starting Crestor since pt took Lipitor in the past and had muscle aches. Cephalgia w/ aura, resolved -likely a/w above but may have been migraines or cluster FOSS. Discussed case w / Neuro - Dr. Tello - who said it could be hypnic FOSS. -acetaminophen/caffeine. -May consider additional workup if FOSS returns. VTE prophylaxis: Lovenox Code Status: Full Status: Inpatient for greater than 2 midnight stay. Disposition: Med surg with discharge in the next few days ____ SUBJECTIVE: Today the patient feels well. He denies headache. He denies pain anywhere. OBJECTIVE: Physical Exam: General: The patient is a male who is alert and in no acute distress. HEENT: normocephalic, extraocular movements intact, conjunctivae clear. Mucous membranes moist. Neck: trachea midline, no visible masses. Abd: soft and nondistended. Bowel sounds Musculoskeletal: Normal muscle tone/bulk. Neuro: cranial nerves II XII grossly intact. Intact gross motor and sensory function. Psych: Appropriate mood and appropriate affect. Skin: No pallor. No petechiae. Heme/lymph: No peripheral edema at bilateral lower extremities. Labs/Imaging/Other Tests: Personally reviewed/interpreted. Echo-normal. EKG-normal sinus rhythm. U-waves in precordial leads. Chest [id number]. MR brain-small lacunar infarct in the deep white matter of the right parietal lobe with a small ribbon of peripheral cortical infarct right parietal area. Mild bilateral white matter disease which could be chronic small vessel ischemia. Head and neck CTA-mild atherosclerosis. No stenosis. Cholesterol panel-abnormal. Blood cultures-pending. ___ Objective: Vital Signs Temp Pulse Resp BP Pulse Ox 36.8 C 75 17 122/75 H 91 L 03/16/18 07:53 03/16/18 07:53 03/16/18 07:53 03/16/18 07:53 03/16/18 07:53 - Time Spent With Patient Time Spent with Patient: greater than 35 minutes Time Spent with Patient: Greater than 35 minutes spent on this patients care, greater than 50% of time spent counseling, educating, and coordinating care regarding the above mentioned plan. ICD10 Worksheet Patient Problems: Problems Problem Status Onset CVA (cerebral vascular accident) Acute
--- NOTE | 2018-03-16 13:08 | NEUROPROG ---
Assessment: BAKGROUND 03/15: 62 year old man with a history of dental caries, HLD (untreated) presented to the ED yesterday with 3 weeks of FOSS. He states about 3 weeks ago he began having a right frontal headache at night starting around 2300. It intensified over days where it would keep him awake, though sleep made it better and he would awaken in the morning without any FOSS. He visited his dentist who took a CT and told him he had a gum infection, so started him on clindamycin and steroid. He continued to have FOSS that intensified. HAs were refractory to OTC NSAID, hydrocodone and oxycodone. He visited an oral surgeon who stated he had no evidence of gum infection, but he had completed his antibiotics by then. FOSS persisted which inspired the ED visit. He had no weakness, sensory disturbance , vision changes, gait change, vertigo, hearing change, speech/language changes. He has no CP, palpitations, SOB. His notes he's been very sweaty in the last few days. Patient has felt a bit warm, but no fevers. On admission an MRI brain wo was done showing a punctate right parietal white matter and cortical ribbon of acute infarct. CTA head/neck showed only some mild carotid bulb plaque bilaterally without any hemodynamic compromise. He has no history of stroke/TIA. INTERVAL HISTORY 03/16: No new events. Headaches resolved. No new complaints. EXAM: VS reviewed in EMR GEN: [email or web address] valladaresing about the room in NAD NECK: supple, nontender, no meningismus CV: RRR s1 s2 wo m/r/c/g. NEURO: MS: awake, alert, oriented to all spheres. Speech nondysarthric. No language disturbance. Follows commands. Attends to both sides. CN: pupils 3mm round and reactive OS, 4mm round reactive OD. VFF. Primary gaze centered. Full ocular motility. Facial sensation preserved. Face symmetric. Hearing grossly intact to finger rub. Palatoglossal movements intact. Shoulder shrug and head turn strong. MOTOR: normal bulk/tone. No adventitial movements. Full power throughout. SENSORY: intact to all modalities throughout. No extinction. COORD: no ataxia FN/HS. Lashanda preserved. REFLEX: plantars down. No clonus. DTRS 2/4. GAIT: ambulating around room with normal gait DATA REVIEW: Labs reviewed in EMR LDL 169 ESR 6 CRP <5 TTE - no mass/shunt, normal valves PERSONALLY INTERPRETED RESULTS AND DATA: MRI brain wo and CTA head/neck per background IMPRESSION AND RECOMMENDATIONS: // ACUTE ISCHEMIC STROKE // FOSS // LEUKOCYTOSIS IMPROVED // POSSIBLE RECENT DENTAL INFECTION Patient with right parietal cortical and white matter ischemia which invokes a mechanism of proximal embolization. CTA head/neck without any significant nidus for proximal embolization. This leaves a cardioembolic source. He did report a gum/tooth infection at onset per his dentist, for which he was on ABX. His TTE shows no overt valvular change. Leukocytosis likely from steroid tapering, but given the reported possible dental infection, diaphoresis and leukocytosis, infectious etiology should be ruled out. He is afebrile, nontoxic appearing. Still very much consider paroxysmal arrhythmia (ie afib) as culprit. - blood cultures pending - ANNE tomorrow - empiric ABX per primary team/ID - ID on board - will hold ASA given risk for infectious etiology - statin for goal LDL < 70 - goal normotension - goal normoglycemia with A1c < 6.5 - PT/OT/MI[employer] OPERATOR eval - stroke education - monitor on tele - if cultures/ANNE negative, then will need outpatient 30-day Holter vs. ILR - will follow Objective: Vital Signs Temp Pulse Resp BP Pulse Ox 36.8 C 75 17 122/75 H 91 L 03/16/18 07:53 03/16/18 07:53 03/16/18 07:53 03/16/18 07:53 03/16/18 07:53 Allergies/Adverse Reactions: azithromycin [Azithromycin] Allergy (Intermediate, Verified 03/14/18 12:49) JOINT PAIN erythromycin base [Erythromycin Base] Allergy (Mild, Verified 03/14/18 12:49) Itching Penicillins Allergy (Mild, Verified 03/14/18 12:49) rash, itching
[2018-03-16] MEDS: ROSUVASTATIN CALCIUM 40 MG TAB PO SCH (14:57)
--- NOTE | 2018-03-16 15:17 | GCON ---
INFECTIOUS DISEASE CONSULTATION REFERRING PHYSICIAN: Sebas Ya MD REASON FOR CONSULTATION: Query endocarditis. HISTORY OF PRESENT ILLNESS: This is a 62-year-old male with a history of rheumatic fever and tetracy hair therapy in childhood with resulting chronic poor dentition who presents to the emergency room a fter a 3-week history of unresolving headache occurring 3/5 nights, mostly at night. Originally, he was seen by his dentist who felt he might have a right upper tooth infection and patient was prescrib ed clindamycin starting February 25. Patient had no change in his headaches and patient underwent a Panorex, which showed no concerning signs for deeper infection. The patient was continued on clindam ycin. He was also seen by his primary care and started on prednisone approximately 12 days prior to admission. This did not change the course of his headaches at that time. Patient completed his cour se of clindamycin on Saturday, March 14 and completed almost 19 days of this therapy. Because of p ersistence of the headaches, he presented to the emergency room for further evaluation. By the time of my exam, patient has received a CT angio of the brain, neck, and MRI of the brain. CT angiograms were negative. MRI of the brain showed some punctate and ribbon-like lesions in the righ t parietal lobe that had a suggestion for concern for embolic disease. Interestingly, patient has no t had a headache since admission. REVIEW OF SYSTEMS: With complete review of systems, the patient describes about 4 episodes of night sweats over the last week and since Winter has lost 30 pounds, which has been a bit greater than expe cted, although he has been trying to lose weight. The trajectory of his weight loss has increased ov er the last week. Patient denies any voice changes, odynophagia, dysphagia, neurologic symptoms othe r than the headache as above. No rashes. No recent international travel. Pertinent social history is the patient does not have livestock exposure, only has a dog. He does have exposure to small chil dren. He uses a hot tub 4 times weekly that is outdoors. Last international travel was in October, to [place]. He does not eat raw meat, nor any unpasteurized milk products. Patient denies any exertional dyspnea, cough, or chest pain. PAST MEDICAL/SURGICAL HISTORY: Hyperlipidemia; Sweet syndrome diagnosed 6 years ago, treated with pr ednisone, diagnosed at [place]; rheumatic fever in childhood with tetracycline therapy, ankle surgery, tonsillectomy in childhood. SOCIAL HISTORY: The patient is retired from [employer]. He moved to [place] in 1976. He typically golfs 3 times weekly. He is . He keeps active and has had no trouble do ing the activities that he wants to. FAMILY HISTORY: Unknown as patient is adopted. ALLERGIES: Penicillin causes itchy palms and feet. It occurred 15 years ago. Denies respiratory sy mptoms. Azithromycin, patient describes a serum sickness like reaction. MEDICATIONS: Aspirin 81 mg, allopurinol, Crestor, Cipro 40 mg, and vancomycin 1.25 g IV q.12. the earnestine mcmullen was loaded with 1.5 g last night for empiric therapy for possible endocarditis. REVIEW OF SYSTEMS: A complete 10-point review of systems was performed and is negative, except as me ntioned in HPI. PHYSICAL EXAMINATION: VITAL SIGNS: The patient has been afebrile throughout the hospital course. T -max 36.8, blood pressure 122/75, heart rate 75, respiratory rate 17, sat 91% on room air. GENERAL: This is a pleasant, nontoxic-appearing male sitting up in bed in no acute distress, communicating in complete sentences. HEENT: The patient does have unequal pupils with the left pupil being greater than the right, but both reactive to light. Extraocular muscles are intact. No conjunctival hemorrh ages. Facial nerve was intact. NECK: Supple. CARDIOVASCULAR: Regular rate and rhythm with an S3. No murmurs. CHEST: Clear to auscultation bilaterally. ABDOMEN: Soft, nontender. Spleen and yaneli er were not palpable. EXTREMITIES: No joint swelling. No edema. No splinter hemorrhages or Janewa y lesions were noted or other peripheral stigmata of endocarditis. SKIN: No rashes. NEUROLOGIC: Earnestine mcmullen had a stable gait and his motor were intact. He was alert and oriented x4. Cranial nerves we re grossly intact, other than what is mentioned above. LABORATORY: Creatinine 0.6. Hemoglobin A1c 6.2. Triglycerides 235, total cholesterol 267, LDL 169. White count 14 today, yesterday was 10.6, hematocrit 45, platelets of 305, 52% neutrophils, 38% lym phocytes. ESR 6. CRP was less than 5. Six sets of blood cultures are pending. IMAGING: As per HPI. In addition, chest x-ray was performed, which showed no focal infiltrates. Al so transthoracic echo showed no valvular lesions consistent with endocarditis and patient's ejection fraction was 65 to 70. ASSESSMENT/PLAN: 62-year-old male with a history of rheumatic fever presented to the emergency room with a history of headaches for 3 weeks. Was found to have some punctate and ribbon-like areas in th e right parietal lobe that suggests some concern for embolic disease. Patient does have some concern ing symptoms for endocarditis, including night sweats and unexpected weight loss, as well as underlyi ng multiple dental caries. Interestingly, patient has an only a moderately elevated white count, whi ch could be attributable to steroid burst and a flat CRP and ESR, although this case could be diagnos tically a challenge due to recent antibiotic and prednisone use, which could artificially change thes e labs. 1. Reasonable to give empiric antibiotics while await further evaluation. Certainly, streptococcal disease would be most common and there is some intrinsic resistance in the community to clindamycin. 2. Agree with ANNE. We will await results. 3. Continue to monitor blood cultures. 4. Reviewed the possible outcomes with the family at the bedside, including positive ANNE, negative b lood cultures, negative ANNE, positive blood cultures and negative ANNE and negative blood cultures. T he 2 preceding instances will potentially suggest endocarditis. Patient has had no clear risk factor s for culture negative endocarditis exposures, such as livestock or unpasteurized cheeses. Infectiou s Disease will continue to follow patient on a daily basis. /[id number]/MODL
[2018-03-16] MEDS: diphenhydrAMINE 25 MG CAP PO PRN (22:42)
[2018-03-17] MEDS ORDERED: NS 1,000 ML IV ONE (06:00)
[2018-03-17] MEDS: ROSUVASTATIN CALCIUM 40 MG TAB PO SCH (08:02)
[2018-03-17] MEDS: ENOXAPARIN 40 MG/0.4 ML SYR SC SCH ×2 (08:02→08:18)
[2018-03-17] MEDS: ALLOPURINOL 300 MG TAB PO SCH (08:02)
--- NOTE | 2018-03-17 08:46 | NEUROPROG ---
Assessment: Total unit time of 25 min. The patient has experienced stroke with possible cardioembolic source or other embolic source but no large vessel stenoses to account for this. Infectious endocarditis is still in the differential diagnosis. He is on Lovenox for DVT prophylaxis but no other anti-platelet or anticoagulation therapy at this time. I believe this is still appropriate to consider weighing risks and benefits. Transesophageal echocardiogram is scheduled for later today. As previously recommended, consideration of prolonged cardiac monitoring would be appropriate if we do not find strong evidence for endocarditis. Subjective: I meeting the patient for the 1st time today. I have reviewed the medical records. He has a history of small ischemic changes in the right parietal lobe with possible embolic source and a question of endocarditis, although no specific infectious etiology identified and no known valve lesions at this point. The patient says that he has experienced headache, but it is now significantly better over the last 48 hr. He does not have complaints of focal numbness or weakness. He denies confusion. He does not have any specific complaints this morning. Objective: Vital Signs Temp Pulse Resp BP Pulse Ox 36.9 C 70 16 114/72 93 03/17/18 04:00 03/17/18 04:00 03/17/18 04:00 03/17/18 04:00 03/17/18 04:00 Laboratory Results 03/16/18 04:19 03/16/18 03/17/18 03/18/18 05:59 05:59 05:59 Intake Total 2049 Balance 2049 He is alert and attentive with clear and fluent speech. No obvious cognitive Impairment. All of his blood cultures so far are negative and either 36 hr or 24 hr. Allergies/Adverse Reactions: azithromycin [Azithromycin] Allergy (Intermediate, Verified 03/14/18 12:49) JOINT PAIN erythromycin base [Erythromycin Base] Allergy (Mild, Verified 03/14/18 12:49) Itching Penicillins Allergy (Mild, Verified 03/14/18 12:49) rash, itching
[2018-03-17] MEDS: VANCOMYCIN 1.25 GM in NS 250 ML IV SCH (09:24)
[2018-03-17] MEDS ORDERED: NS 500 ML IV ONE (10:15)
[2018-03-17] MEDS ORDERED: MIDAZOLAM 2 MG/2 ML VIAL IVP ONE (10:15)
[2018-03-17] MEDS ORDERED: BENZOCAINE UNIT DOSE SPRAY HURRICAINE MM ONE (10:15)
[2018-03-17] MEDS ORDERED: fentaNYL 100 MCG/2 ML INJ IVP ONE (10:15)
--- NOTE | 2018-03-17 11:39 | PDHPUP ---
History & Physical Update H&P update statement: This history and physical update is based on an assessment of the patient which was completed after admission or registration (within 24 hours), but prior to the surgery/procedure. H&P update: H&P reviewed & patient examined, no change in patient's condition since H&P completed (Reviewed Dr. Nj consult noted dated 03/16/2018)
--- NOTE | 2018-03-17 11:40 | PDPROPOC ---
Sedation Plan of Care Sedation Plan of Care: vital signs stable, mental status noted ASA Classification: ASA 2 Planned drugs: fentanyl, midazolam Mallampati Score: Class 2 Mallampati Reference Image: Patient passed 3-3-2 rule?: Yes
--- NOTE | 2018-03-17 13:51 | ECHO ---
[email or web address] [address] [address] Main: [phone] Fax: Transesophageal Echocardiography Name: ROB QUEVEDO MR#: [id number] Study Date: 03/17/2018 Study Time: 11:50 AM Date of : 1955 Age: 62 year(s) Height: 177.8 cm (70 in.) Weight: 81.65 kg (180 lb.) BSA: 2 m2 Gender: Male Examination: ANNE Indication: rule out cardiac source of embolism Image Quality: Adequate Contrast: Requested by: Vika Burciaga Heart Rate: Rhythm: BP: / Procedure Staff Personal Lines Account Executive: Tresa Narvaez [facility] Reading Physician: Vika Burciaga MD Requesting Provider: Niles Roman ANEN Exam Details Conclusions: Normal size left ventricle. Normal global systolic LV function. Normal size right ventricle. Normal RV function. An agitated saline study was performed and was negative for intracardiac shunting. No thrombus in left appendage. Mild aortic valve regurgitation is present. Moderate, nonmobile atheroma seen in the aortic arch. No valvular vegetation Measurements: Chambers Valvular Assessment AV/MV Valvular Assessment TV/PV Normal Normal Normal Name Value Range Name Value Range Name Value Range Additional Measurements: Findings: Left Ventricle: Normal size left ventricle. Normal global systolic LV function. Right Ventricle: Normal size right ventricle. Normal RV function. Left Atrium: Patient: ROB QUEVEDO Study Date: 03/17/2018 Page 1 of 2 11:50 AM An agitated saline study was performed and was negative for intracardiac shunting. Left Atrial Appendage: Good color flow doppler in the left atrial appendage. Normal PW-Doppler flow pattern. No thrombus in left appendage. Mitral Valve: The mitral valve is normal in appearance and function. Trivial mitral valve regurgitation. No mitral stenosis is present. Aortic Valve: The aortic valve is tri-leaflet. Mild aortic valve regurgitation is present. No aortic valve stenosis is present. Tricuspid Valve: The tricuspid valve is normal in appearance and function. Pulmonic Valve: The pulmonic valve is normal in appearance and function. Aorta: Moderate, nonmobile atheroma seen in the aortic arch. Pericardium: No pericardial effusion. l1n (No Signature Object) Patient: ROB QUEVEDO Study Date: 03/17/2018 Page 2 of 2 11:50 AM [id number]
[2018-03-17 17:03] VITALS: BP 123/70
--- NOTE | 2018-03-21 09:54 | PDDCSUM ---
Discharge Summary Discharge Summary: Date of Admission: March 14, 2018 Date of Discharge: March 17, 2018 Discharge Diagnoses: CVA- lacunar right parietal infarct Hyperlipidemia, uncontrolled Prediabetes Hx Sweet's syndrome Possible sinusitis Admission Diagnoses: Acute headache Consultants: Neurology - Dr. Tello [facility] Course: The patient is a 62-year-old male w/ PMH dental caries who presented to the hospital with a severe, stabbing daily headache which had been waking him up from sleep for 2-3 weeks prior. Headaches were located above occurred his left eye and radiated across his forehead. They started in the evening and lasted several hours. Prior to admission, patient had also been getting treated for multiple dental abscesses and sinusitis with clindamycin, ibuprofen, and steroids. Patient was noted to have elevated blood pressure initially, but this self-resolved. Headache resolved in the emergency department and did not recur during hospitalization. MRI revealed a small infarct in the right parietal lobe, which was likely cardioembolic. Patient had no neurological deficits. Cardiac monitoring did not reveal any bouts of atrial fibrillation. Transthoracic echocardiogram was normal, including the left atrium. Transesophageal echocardiogram was performed to rule out infective endocarditis as a possible cause of cardioembolic stroke. Patient was recommended to continue outpatient workup for his stroke and symptoms. He was recommended to wear a 30 day school lunch monitor to evaluate for paroxysmal atrial fibrillation as most likely cause of his stroke. Patient was put on stroke secondary prevention medications-aspirin and rosuvastatin. He was discharged to home in stable condition. Physical Exam: General: The patient is a male who is alert and in no acute distress. HEENT: normocephalic, extraocular movements intact, conjunctivae clear, no lesions on face. Nares and oral mucosa pink and moist. Neck: trachea midline, no visible masses, no external lesions. Resp: unlabored breathing. Abd: soft and nondistended. Musculoskeletal: Normal muscle tone and bulk. Neuro: cranial nerves II XII grossly intact. Intact gross motor and sensory function. Psych: appropriate mood/affect. Skin: no pallor. Condition: Stable Discharged to: Home. Pertinent tests/labs/imaging: TTE-normal. ANNE- no valvular vegetations. No intracardiac shunting. EKG-normal sinus rhythm. U-waves in precordial leads. Chest [id number]. MRI brain-small lacunar infarct in the deep white matter of the right parietal lobe with a small ribbon of peripheral cortical infarct right parietal area. Mild bilateral white matter disease which could be chronic small vessel ischemia. Head and neck CTA-mild atherosclerosis. No stenosis. Cholesterol panel-abnormal. HbA1C 6.2%. Blood cultures-negative for growth. Medications: Please see med rec form. New meds: Daily baby aspirin. Crestor 40 mg daily. Special instructions: Return to hospital for concerning symptoms such as worse headache ever, new onset of focal motor or sensory problems, fainting, difficulty with speech, confusion, etc. Follow up: Follow up with PCP in 1 week. Follow up with cane packer in 1 week to get set up with a school lunch monitor. > 30 minutes of total time was spent on counseling and coordination of care for this patient's discharge.
== END 2018-03-17 18:00 | disposition home or self-care (01) | DRG 66 ==
LOC: F3N 19:40 → OBSVTOIN 03-15 20:35 → F3N 03-16 08:42
PROVIDERS: ADMIT Internal Medicine; ATTEND Internal Medicine
PROC: B246ZZ4 Ultrasonography of Right and Left Heart, Transesophageal (ICD-10-PCS; principal; 2018-03-17)
DX: I63.81 Other cerebral infarction due to occlusion or stenosis of small artery (principal); E78.5 Hyperlipidemia, unspecified; R51 Headache; J32.9 Chronic sinusitis, unspecified; K08.9 Disorder of teeth and supporting structures, unspecified; R73.03 Prediabetes; F17.210 Nicotine dependence, cigarettes, uncomplicated; Z23 Encounter for immunization
CPT/HCPCS: 92523-GN; 97161-GP; G0008; G0009; G0378; J1650; J2250; J3010; J3370; Q9967

== ENCOUNTER 2018-05-05 09:55 | Day surgery (SDC) | payer OTHER ==
[2018-05-05] MEDS ORDERED: LIDOCAINE 1% 300 MG/30 ML SDV SC ONE (09:57)
--- NOTE | 2018-05-05 10:56 | PDHPUP ---
History & Physical Update H&P update statement: This history and physical update is based on an assessment of the patient which was completed after admission or registration (within 24 hours), but prior to the surgery/procedure. H&P update: H&P reviewed & patient examined, no change in patient's condition since H&P completed
--- NOTE | 2018-05-05 12:05 | CPIP ---
DATE OF PROCEDURE: 05/05/2018 PROCEDURE: LINQ insertion. INDICATIONS: Cryptogenic stroke. COMPLICATIONS: None. DESCRIPTION OF PROCEDURE: Informed consent was obtained. The patient was prepped and draped in ster ile fashion. 1% lidocaine was used for local anesthesia of the left parasternal region. Using stand lana technique, a [employer] Waterflowtronic LINQ device was inserted. The incision was closed with 3 treva. Steril e dressing applied. Interrogation pending. CONCLUSION: Successful LINQ insertion. Serial # [id number]. Patient currently in stable condition. Follow up in our office 1 week for staple removal. /[id number]/MODL
== END 2018-05-05 12:15 | disposition home or self-care (01) ==
LOC: FCATH 09:55
PROVIDERS: ATTEND Internal Medicine Cardiovascular Disease
PROC: 0JH60PZ Insertion of Cardiac Rhythm Related Device into Chest Subcutaneous Tissue and Fascia, Open Approach (ICD-10-PCS; principal; 2018-05-05)
DX: I63.9 Cerebral infarction, unspecified (principal); R73.03 Prediabetes; F17.200 Nicotine dependence, unspecified, uncomplicated
CPT/HCPCS: C1764